=== PATIENT | female | born 1985 | race Caucasian/White ===

== ENCOUNTER 2018-09-11 19:35 | Emergency (ER) | payer BC ==
[2018-09-11] MEDS ORDERED: TETRACAINE HCL 0.5% OPH SOLN 4 ML OD ONE (23:22)
[2018-09-11] MEDS ORDERED: CIPROFLOXACIN HCL 0.3% OPH SOLN 2.5 ML OD ONE (23:22)
--- NOTE | 2018-09-11 23:23 | ER Document Report ---
ED General - General Chief Complaint: Eye Pain Stated Complaint: RIGHT EYE PAIN Time Seen by Provider: 09/11/18 23:22 Notes: Patient is a 33-year-old female that presents to the emergency department for chief complaint of right eye pain and redness. Patient states she first noticed this morning, seem to get worse throughout the day, she had associated photophobia, and pain in the eye that she describes as a 6 out of 10 a, constant Shena sensation. She does wear contacts, she did remove her contacts, she thinks may be the cause the problem, because she did leave them in overnight. She denies having any headache, fevers, chills, night sweats, chest pain, no other complaints at this time. Past Medical History: Denies chronic medical conditions Past Surgical History: Denies surgical history Social History: Admits to smoking cigarettes daily, denies alcohol or drug use. Family History: Reviewed and noncontributory for presenting illness Allergies: Reviewed, see documented allergy list. REVIEW OF SYSTEMS: Other than noted above, the 12 point review of systems was reviewed with the patient and were negative, all pertinent findings are included in the HPI. PHYSICAL EXAMINATION: Vital signs reviewed, nursing noted reviewed. GENERAL: Well-appearing, well-nourished and in no acute distress. HEAD: Atraumatic, normocephalic. EYES: The right eye is injected, moderate to severe conjunctival injection, tearing, no purulent discharge, PERRLA, EOMI, no pain with extraocular Eye movements. Fluorescein dye exam, was consistent with a right eye corneal abrasion, in the 11 o'clock position, small and punctate. ENT: Moist mucous membranes. NECK: Normal range of motion, supple without lymphadenopathy LUNGS: Breath sounds clear to auscultation bilaterally and equal. No wheezes rales or rhonchi. HEART: Regular rate and rhythm without murmurs EXTREMITIES: Nontender, good range of motion, no pitting or edema. NEUROLOGICAL: No focal neurological deficits. Moves all extremities spontaneously Motor and sensory grossly intact on exam. PSYCH: Normal mood, normal affect. SKIN: Warm, Dry, normal turgor, no rashes or lesions noted on exposed skin TRAVEL OUTSIDE OF THE [place] IN LAST 30 DAYS: No - Related Data Allergies/Adverse Reactions: Penicillins Allergy (Verified 11/29/15 06:03) Past Medical History - Social History Smoking Status: Current Every Day Smoker Chew tobacco use (# tins/day): No Frequency of alcohol use: None Drug Abuse: None Family History: Reviewed & Not Pertinent Patient has suicidal ideation: No Patient has homicidal ideation: No Renal/ Medical History: Denies: Hx Peritoneal Dialysis Psychiatric Medical History: Reports: Hx Depression Physical Exam - Vital signs Vitals: Temp Pulse Resp BP Pulse Ox 98.9 F 88 16 121/62 99 09/11/18 19:55 09/11/18 19:55 09/11/18 19:55 09/11/18 19:55 09/11/18 19:55 Course - Re-evaluation Re-evalutation: Patient seen and examined vital signs reviewed. Patient was evaluated and treated as appropriate for the patient's presenting symptoms and complaint, with consideration of any critical or life threatening conditions that may be associated with their obtained history and exam as noted above. Patient was treated with tetracaine eyedrops and a dose of Percocet, as well as started on ciprofloxacin eyedrops. 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 Plan of care was discussed with the patient at this point, after careful consideration I feel that that patient can be discharged from the emergency department, the patient was educated treatments and reasons to return to the emergency department based on their presumed diagnosis as noted above, they were advised to followup with a primary care physician in 2-3 days. Patient was agreeable to plan of care. *Note is created using voice recognition software and may contain spelling, syntax or grammatical errors. 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 If your symptoms are not improving or worsening, do not hesitate to return to the emergency department for repeat evaluation. Forms: Return to Work Referrals: DIANA JOE MD [ACTIVE STAFF] - Follow up tomorrow (pattern chain maker supervisor, if you cannot get in to see yours. )
[2018-09-11] MEDS ORDERED: OXYCODONE-ACETAMINOPHEN 5-325 MG TABLET PO ONE (23:24)
[2018-09-12 00:12] VITALS: BP 123/66
== END 2018-09-11 23:50 | disposition home or self-care (01) ==
LOC: ER 19:35
DX: H18.821 Corneal disorder due to contact lens, right eye (principal); H57.11 Ocular pain, right eye; F17.210 Nicotine dependence, cigarettes, uncomplicated
CPT/HCPCS: 99283; J3490 ×2